=== PATIENT | male | born 1955 | race Caucasian/White ===

== ENCOUNTER 2018-08-13 21:53 | Inpatient (IN) | payer OTHER ==
[~2018-08-13] VITALS: Ht 182.9 cm; Wt 128.9 kg
[2018-08-13 21:58] VITALS: Ht 182.9 cm; Wt 128.9 kg
[2018-08-13 22:50] LABS: RED CELL DISTRIBUTION WIDTH 13.9 % (11.5-14.5)
[2018-08-13 22:57] LABS: PLATELET COUNT 121 x10^3mcL (130-400)
[2018-08-13 22:58] LABS: CALCIUM 7.5 mg/dL (8.5-10.1); CARBON DIOXIDE 21.6 mmol/L (21-32); CREATININE SERUM 2.7 mg/dL (0.7-1.3); POTASSIUM SERUM 3.4 mmol/L (3.5-5.1)
[2018-08-13 23:02] LABS: ALBUMIN 2.5 g/dL (3.4-5.0); BILIRUBIN TOTAL 2.19 mg/dL (0.20-1.00); MAGNESIUM 1.5 mg/dL (1.8-2.4); TOTAL PROTEIN, SERUM 6.1 g/dL (6.4-8.2)
[2018-08-13 23:14] LABS: BAND NEUTROPHIL 5 % (0-10); MONOCYTE 5 % (0-7); PLATELET MORPHOLOGY PLATELETS DECREASED; SEGMENTED NEUTROPHILS 80 % (37-75); rbc morphology (normal/abnorm) NORMAL (NORMAL)
[2018-08-14] VITALS (7 sets, daily range): BP systolic 73–157; BP diastolic 49–73
[2018-08-14 00:39] LABS: UA SPECIFIC GRAVITY >=1.030 (1.005-1.035); microscopic required? YES; urine erythrocyte 3+ (NEGATIVE)
[2018-08-14 00:58] LABS: AMPHETAMINE QUAL UR NONE DETECTED (See below)
[2018-08-14 02:36] LABS: T3 TOTAL 0.81 ng/mL
[2018-08-14 03:02] LABS: PHOSPHOROUS 1.4 mg/dL (2.5-4.9)
[2018-08-14 03:08] LABS: FREE T4 1.2 ng/dL (0.76-1.46); FREE THYROXINE INDEX 1.9 ug/dL (1.4-4.5); T4(THYROXINE) 5.5 ug/dL (4.7-13.3)
[2018-08-14 03:14] LABS: CHOLESTEROL/HDL RATIO 2.7
[2018-08-14 05:15] LABS: RED CELL DISTRIBUTION WIDTH 14.3 % (11.5-14.5)
[2018-08-14 05:17] LABS: PLATELET COUNT 106 x10^3mcL (130-400)
[2018-08-14 05:26] LABS: BAND NEUTROPHIL 5 % (0-10); MONOCYTE 5 % (0-7); PLATELET MORPHOLOGY PLATELETS DECREASED; SEGMENTED NEUTROPHILS 85 % (37-75)
[2018-08-14 05:28] LABS: CALCIUM 7.3 mg/dL (8.5-10.1); CARBON DIOXIDE 20.5 mmol/L (21-32); CREATININE SERUM 3.2 mg/dL (0.7-1.3); POTASSIUM SERUM 3.7 mmol/L (3.5-5.1); rbc morphology (normal/abnorm) NORMAL (NORMAL)
[2018-08-14 05:33] LABS: BILIRUBIN DIRECT 1.61 mg/dL (0.0-0.2); BILIRUBIN TOTAL 2.3 mg/dL (0.20-1.00)
[2018-08-14 11:38] LABS: CALCIUM 7.4 mg/dL (8.5-10.1); CARBON DIOXIDE 18.7 mmol/L (21-32); CREATININE SERUM 3.2 mg/dL (0.7-1.3); POTASSIUM SERUM 4.7 mmol/L (3.5-5.1)
== END 2018-08-14 18:40 | disposition short-term general hospital (02) | DRG 871 ==
LOC: ED 21:53 → IC 08-14 00:44
PROVIDERS: Emergency Medicine; Internal Medicine
PROC: 05HM33Z Insertion of Infusion Device into Right Internal Jugular Vein, Percutaneous Approach (ICD-10-PCS; principal; 2018-08-14)
PROC: B543ZZA Ultrasonography of Right Jugular Veins, Guidance (ICD-10-PCS; 2018-08-14)
DX: A41.9 Sepsis, unspecified organism (principal); N17.0 Acute kidney failure with tubular necrosis; E43 Unspecified severe protein-calorie malnutrition; J96.00 Acute respiratory failure, unspecified whether with hypoxia or hypercapnia; N39.0 Urinary tract infection, site not specified; N13.2 Hydronephrosis with renal and ureteral calculous obstruction; E87.6 Hypokalemia; T40.2X1A Poisoning by other opioids, accidental (unintentional), initial encounter; Y92.018 Other place in single-family (private) house as the place of occurrence of the external cause; E83.42 Hypomagnesemia; E83.39 Other disorders of phosphorus metabolism; E83.51 Hypocalcemia; G89.29 Other chronic pain; M54.9 Dorsalgia, unspecified; Z68.36 Body mass index [BMI] 36.0-36.9, adult
CPT/HCPCS: 36600; 83880; 84439; 85378; 87804; 94150; A9540; G0480; J1720; J1956; J2405; J2543; J3370; J3475; J3490; J7030; J7040; J7050; J7620; Q0092

== ENCOUNTER 2018-09-08 04:30 | Inpatient (IN) | payer OTHER ==
[~2018-09-08] VITALS: Ht 182.9 cm; Wt 113.4 kg
[2018-09-08 04:37] VITALS: Ht 182.9 cm; Wt 113.4 kg
[2018-09-08] MEDS ORDERED: FLO4 PO (06:10)
[2018-09-08 07:01] LABS: CALCIUM 8.2 mg/dL (8.5-10.1); CARBON DIOXIDE 25.4 mmol/L (21-32); CHLORIDE SERUM 105 mmol/L (98-107); CREATININE SERUM 1.7 mg/dL (0.7-1.3); GFR1 43 mL/min; GLUCOSE SERUM 100 mg/dL (74-106); SODIUM SERUM 139 mmol/L (136-145)
[2018-09-08 07:06] LABS: ALKALINE PHOSPHATASE 124 U/L (46-116); ALT/SGPT 25 U/L (16-63); AST/SGOT 25 U/L (15-37); BILIRUBIN TOTAL 0.72 mg/dL (0.20-1.00); CHOLESTEROL 163 mg/dL (<200)
[2018-09-08 07:08] LABS: ALBUMIN 2.7 g/dL (3.4-5.0)
[2018-09-08 07:09] LABS: BASOPHIL % 0.3 % (0-2); PLATELET COUNT 215 x10^3mcL (130-400)
[2018-09-08 07:15] LABS: RED CELL DISTRIBUTION WIDTH 15.2 % (11.5-14.5)
[2018-09-08 09:17] LABS: microscopic required? YES; urine erythrocyte 3+ (NEGATIVE)
[2018-09-08 13:26] LABS: AMPHETAMINE QUAL UR NONE DETECTED (See below)
[2018-09-08 13:30] LABS: T3 TOTAL 1.39 ng/mL
[2018-09-08 13:32] LABS: FREE T4 1.09 ng/dL (0.76-1.46); T4(THYROXINE) 7.9 ug/dL (4.7-13.3)
[2018-09-08 13:42] VITALS: BP 111/61
[2018-09-08 16:39] LABS: IRON 40 ug/dL (65-170)
[2018-09-08 16:43] LABS: TOTAL IRON BINDING CAPACITY 223 ug/dL (250-450)
[2018-09-08 17:41] VITALS: BP 130/66
[2018-09-08 20:37] VITALS: BP 112/62
[2018-09-09 05:21] VITALS: BP 107/57
[2018-09-09 06:25] LABS: BASOPHIL % 0.5 % (0-2); PLATELET COUNT 217 x10^3mcL (130-400)
[2018-09-09 06:29] LABS: CALCIUM 8.3 mg/dL (8.5-10.1); CARBON DIOXIDE 26.5 mmol/L (21-32); CREATININE SERUM 1.6 mg/dL (0.7-1.3); POTASSIUM SERUM 4.1 mmol/L (3.5-5.1)
[2018-09-09 07:04] LABS: RED CELL DISTRIBUTION WIDTH 15.3 % (11.5-14.5)
[2018-09-09 10:27] VITALS: BP 108/69
[2018-09-09 13:30] VITALS: BP 117/52
[2018-09-09 17:23] VITALS: BP 126/70
[2018-09-09 21:12] VITALS: BP 136/81
[2018-09-09 23:34] VITALS: BP 136/81
[2018-09-10 06:10] VITALS: BP 117/71
[2018-09-10 06:22] LABS: BASOPHIL % 0.5 % (0-2); PLATELET COUNT 212 x10^3mcL (130-400)
[2018-09-10 06:40] LABS: RED CELL DISTRIBUTION WIDTH 15.6 % (11.5-14.5)
[2018-09-10 07:24] LABS: CALCIUM 8.3 mg/dL (8.5-10.1); CARBON DIOXIDE 26.6 mmol/L (21-32); CREATININE SERUM 1.5 mg/dL (0.7-1.3); MAGNESIUM 1.9 mg/dL (1.8-2.4); PHOSPHOROUS 3.7 mg/dL (2.5-4.9)
[2018-09-10 07:44] VITALS: BP 118/57
[2018-09-10 09:42] VITALS: BP 118/57
[2018-09-10 11:48] VITALS: BP 112/68
== END 2018-09-10 14:16 | disposition home or self-care (01) | DRG 640 ==
LOC: ED 04:30 → DU 08:16
PROVIDERS: Internal Medicine; Specialist
DX: E86.0 Dehydration (principal); E43 Unspecified severe protein-calorie malnutrition; N17.0 Acute kidney failure with tubular necrosis; N39.0 Urinary tract infection, site not specified; J98.11 Atelectasis; R55 Syncope and collapse; N40.0 Benign prostatic hyperplasia without lower urinary tract symptoms; E78.5 Hyperlipidemia, unspecified; D64.9 Anemia, unspecified; F14.21 Cocaine dependence, in remission; F12.21 Cannabis dependence, in remission; Z68.30 Body mass index [BMI] 30.0-30.9, adult
CPT/HCPCS: 84439; 94150; 97110-GP; 97116-GP; G0480; J0696; J7030; J7050; J7620; Q0092